=== PATIENT | female | born 1970 | race Caucasian/White ===

== ENCOUNTER 2016-10-04 19:32 | Emergency (ER) | payer OTHER ==
--- NOTE | 2016-10-04 20:12 | ED Physician Documentation ---
Dyspnea - HISTORIAN Historian: patient - HPI Chief Complaint: Dyspnea Onset: hours (this am) Severity: moderate Exacerbated By: nothing Associated Symptoms: chills. denies: fever, sweating Further Comments: yes (Non productive cough, has had some wheezing and tightness in the chest, pain with deep breathing.) - ROS CONST: no problems - PAST HX Lung Disease: none. denies: asthma, COPD Cardiac Disease: none PE Risk Factors: none Surgeries/Procedures: hysterectomy Allergies/Adverse Reactions: Allergies Allergy/AdvReac Type Severity Reaction Status Date / Time doxycycline calcium Allergy Intermediate Hives Verified 10/04/16 19:50 [From Vibramycin] doxycycline hyclate Allergy Intermediate Hives Verified 10/04/16 19:50 [From Vibramycin] doxycycline monohydrate Allergy Intermediate Hives Verified 10/04/16 19:50 [From Vibramycin] Penicillins Allergy Intermediate Hives Verified 10/04/16 19:50 Home Medications: Ambulatory Orders Medication Instructions Recorded Azithromycin [Zithromax] 250 mg PO QD #4 tablet 10/04/16 - SOCIAL HX Smoking History: quit less than 1 year (1 wwek ago, was smoking 1/2 ppd) Alcohol Use: none Drug Use: none - FAMILY HX Family History: other (duaghter with asthma) - REVIEWED ASSESSMENTS Nursing Assessment Reviewed: Yes Dyspnea Physical Exam - EXAM General Appearance: no acute distress, alert Neck: nml inspection Respiratory: no resp. distress, breath sounds nml, no pain on inspiration, speaks full sentences, wheezes (with forced expiration), rales. No: rhonchi, chest wall tenderness CVS: reg. rate & rhythm, no murmur Abdomen: non-tender Skin: color nml, no rash Extremities: non-tender Neuro/Psych: oriented x3, CN's nml as tested, mood/affect nml Discharge Clincal Impression: Bronchitis Prescriptions: Azithromycin [Zithromax] 250 mg PO QD #4 tablet Referrals: Primary Doctor,No [Primary Care Provider] - 2 Days Additional Instructions: Take Azithromycin as directed. Stay off cigarettes. If symptoms do not improve to return or follow-up with your primary care provider. Home Medications: Ambulatory Orders Azithromycin [Zithromax] 250 mg PO QD #4 tablet 10/04/16 Condition: Stable Disposition: 01 HOME, SELF-CARE Decision to Admit: NO Date of Decison to Admit: 10/04/16 Decision Time: 21:27
[2016-10-04] MEDS ORDERED: IPRATROPIUM/ALBUTEROL SULFATE 3 ML AMPUL.NEB NEB ONE ×2 (20:43)
--- NOTE | 2016-10-04 20:45 | Diagnostic Imaging Report ---
DAVIS BAUTISTA~ [facility] [address] [facility].[address] [id number] ~ ~ ~ ~ Report Submission Date: October 04, 2016 8:42:55 PM CDT Patient ~ Study Name: KARINA CERON ~ Date: October 04, 2016 8:23:52 PM CDT ~ Modality Type: CR Gender: F ~ Description: CHEST : 68 ~ Institution: [facility] Physician: DAVIS BAUTISTA ~ ~ ~ ~ Chest -two views CLINICAL HISTORY: ~ Nonproductive cough. ~Shortness of breath. FINDINGS: ~ Examination of the chest in PA and lateral views with no prior film for comparison demonstrates the lungs to be clear. ~Cardiovascular and mediastinal silhouettes are within normal limits. ~The bony thorax is intact. IMPRESSION: ~ Negative chest. ~ Electronically signed on October 04, 2016 8:42:55 PM CDT by: Miguelangel JON
[2016-10-04] MEDS ORDERED: AZITHROMYCIN 250 MG TABLET PO ONE (21:20)
[2016-10-04] MEDS ORDERED: methylPREDNISolone ACETATE 80 MG/ML VIAL IM ONE (21:24)
[2016-10-04 21:58] VITALS: BP 170/97
== END 2016-10-04 21:35 | disposition home or self-care (01) ==
LOC: ED 19:32
DX: J20.9 Acute bronchitis, unspecified (principal)
CPT/HCPCS: 71020; J1040; 96372; 99283